=== PATIENT | female | born 1985 | race Caucasian/White ===

== ENCOUNTER → 2019-02-20 10:38 | Outpatient (CLI) | payer OTHER, SELFPAY ==
[2019-02-20 10:55] LABS: RBC Urine None Seen (0-5/HPF); WBC Urine None Seen (0-5/HPF)
[2019-02-20 12:04] LABS: Add Manual Diff / Slide Review NO; Basophils Absolute Auto 0 /uL (0-100); Eosinophils Absolute Auto 100 /uL (0-450); Eosinophils Percent Auto 1.2 % (2-4); Hematocrit 40.4 % (36-46); Hemoglobin 13.7 g/dL (12.0-16.0); Lymphocytes Absolute Auto 2000 /uL (1100-4500); Lymphocytes Percent Auto 44.1 % (25-40); Mean Corpuscular HGB Conc 33.8 % (30-36); Mean Corpuscular Hemoglobin 29.7 PG (26-34); Mean Corpuscular Volume 87.6 fL (80-100); Monocytes Absolute Auto 500 /uL (0-900); Monocytes Percent Auto 11.9 % (3-14); Neutrophils Absolute Auto 1900 /uL (1500-7000); Neutrophils Percent Auto 41.8 % (50-75); Platelet Count 379 X10^3/uL (150-400); Red Blood Cell Count 4.62 X10^6/uL (4.0-5.2); Red Cell Distribution Width 12.6 % (11.6-14.8); White Blood Cell Count 4.5 X10^3/uL (4.5-11.0)
[2019-02-20 12:47] LABS: Alanine Aminotransferase 16 IU/L (<35); Albumin 4.6 g/dL (3.5-5.0); Albumin Globulin Ratio 1.8 (1.0-2.8); Alkaline Phosphatase 53 U/L (38-126); Aspartate Aminotransferase 21 IU/L (14-36); BUN Creatinine Ratio 32.9 (6-22); Bilirubin Total 0.7 mg/dL (0.2-1.3); Blood Urea Nitrogen 23 mg/dL (7-17); Calcium 9.5 mg/dL (8.4-10.2); Carbon Dioxide 26 mmol/L (22-32); Chloride 103 mmol/L (98-107); Cholesterol 183 mg/dL (140-199); Estimated Glomerular Filt Rate > 60.0 mL/min (>60); Globulin 2.6 g/dL (1.7-4.1); Glucose 92 mg/dL (70-100); HDL Cholesterol 63 mg/dL (40-60); HEMOLYSIS < 15 (0-50); LDL Cholesterol Calculated 109 mg/dL (<100); Potassium 4.4 mmol/L (3.4-5.1); Sodium 138 mmol/L (137-145); Total Protein 7.2 g/dL (6.3-8.2); Triglycerides 54 mg/dL (35-150)
[2019-02-20 12:58] LABS: Appearance Urine UA CLEAR; Bilirubin Urine UA NEGATIVE (NEGATIVE); Color Urine UA YELLOW; Glucose Urine UA NEGATIVE (Negative); Ketones Urine UA NEGATIVE (NEGATIVE); Leukocyte Esterase Urine UA NEGATIVE (NEGATIVE); Nitrite Urine UA NEGATIVE (Negative); Occult Blood Urine UA NEGATIVE (Negative); Protein Urine UA NEGATIVE (Negative); Urobilinogen Urine UA 0.2 E.U./dL (0.2)
[2019-02-20 13:02] LABS: Free T4, Direct Thyroxine 0.99 ng/dL (0.78-2.19); Specific Gravity Urine UA 1.015 (1.000-1.035)
[2019-02-20 13:06] LABS: Squamous Epithelial Cell Urine 10-30 /HPF (0-5/HPF)
[2019-02-20 13:07] LABS: Bacteria Urine Moderate (10-30); Culture Indicated Urine Cult Not Indicated
[2019-02-20 13:16] LABS: Thyroid Stimulating Hormone 2.22 uIU/mL (0.47-4.68)
[2019-02-20 13:20] LABS: Ferritin 23.3 ng/mL (6.27-137)
[2019-02-23 14:11] LABS: Thyroid Peroxidase Antibodies < 1 IU/mL (< 9)
== END ==
PROVIDERS: Visit Provider Naturopath
DX: D64.9 Anemia, unspecified (principal); E04.9 Nontoxic goiter, unspecified; Z00.01 Encounter for general adult medical examination with abnormal findings
CPT/HCPCS: 36415; 80053; 80061; 81001; 82728; 83036; 84439; 84443; 84481; 85025; 86376

== ENCOUNTER → 2019-08-06 15:44 | Outpatient (CLI) | payer OTHER, SELFPAY ==
[2019-08-06 15:59] LABS: Bacteria Urine None Seen
[2019-08-06 16:32] LABS: Appearance Urine UA CLEAR; Bilirubin Urine UA NEGATIVE (NEGATIVE); Color Urine UA YELLOW; Glucose Urine UA NEGATIVE (Negative); Ketones Urine UA NEGATIVE (NEGATIVE); Leukocyte Esterase Urine UA NEGATIVE (NEGATIVE); Nitrite Urine UA NEGATIVE (Negative); Occult Blood Urine UA 2+ (Negative); Protein Urine UA NEGATIVE (Negative); Specific Gravity Urine UA <=1.005 (1.000-1.035); Urobilinogen Urine UA 0.2 E.U./dL (0.2)
[2019-08-06 16:38] LABS: Add Manual Diff / Slide Review NO; Basophils Absolute Auto 0 /uL (0-100); Basophils Percent Auto 0.5 % (0-2); Eosinophils Absolute Auto 100 /uL (0-450); Eosinophils Percent Auto 0.9 % (2-4); Hematocrit 36.8 % (36-46); Hemoglobin 12.6 g/dL (12.0-16.0); Lymphocytes Absolute Auto 1800 /uL (1100-4500); Lymphocytes Percent Auto 25.1 % (25-40); Mean Corpuscular HGB Conc 34.4 % (30-36); Mean Corpuscular Hemoglobin 30.2 PG (26-34); Mean Corpuscular Volume 88.1 fL (80-100); Monocytes Absolute Auto 500 /uL (0-900); Monocytes Percent Auto 7.4 % (3-14); Neutrophils Absolute Auto 4700 /uL (1500-7000); Neutrophils Percent Auto 66.1 % (50-75); Platelet Count 297 X10^3/uL (150-400); Red Blood Cell Count 4.17 X10^6/uL (4.0-5.2); Red Cell Distribution Width 12.8 % (11.6-14.8); White Blood Cell Count 7.1 X10^3/uL (4.5-11.0)
[2019-08-06 16:50] LABS: Culture Indicated Urine Cult Not Indicated; RBC Urine 1-5/HPF (0-5/HPF); Squamous Epithelial Cell Urine 0-1 /HPF (0-5/HPF); WBC Urine 0-1/HPF (0-5/HPF)
[2019-08-06 17:11] LABS: BUN Creatinine Ratio 20.3 (6-22); Blood Urea Nitrogen 16 mg/dL (7-17); Calcium 10.1 mg/dL (8.4-10.2); Carbon Dioxide 28 mmol/L (22-32); Chloride 101 mmol/L (98-107); Estimated Glomerular Filt Rate > 60.0 mL/min (>60); Glucose 96 mg/dL (70-100); HEMOLYSIS < 15 (0-50); Potassium 4.5 mmol/L (3.4-5.1); Sodium 136 mmol/L (137-145)
[2019-08-06 17:44] LABS: Ferritin 20 ng/mL (6-137)
[2019-08-07 10:20] LABS: SARS CoV19 IgG Negative (Negative)
== END ==
PROVIDERS: PCP Naturopath; Referring Provider Naturopath; Visit Provider Naturopath
DX: D64.9 Anemia, unspecified (principal); R82.998 Other abnormal findings in urine; R94.4 Abnormal results of kidney function studies
CPT/HCPCS: 36415; 80048; 81001; 82728; 85025; 86769

== ENCOUNTER 2019-09-20 18:25 | Emergency (ER) | payer OTHER, SELFPAY ==
[2019-09-20] VITALS (15 sets, daily range): BP systolic 120–147; BP diastolic 69–90; PULSE 84–119; RESP 17–18; TEMP 37.4; O2SAT 77–100
--- NOTE | 2019-09-20 18:57 | ED.ABDPAIN ---
HPI - Abdominal Pain General Chief Complaint: Abdominal Pain Stated Complaint: ABD PAIN WAS 6 WKS Time Seen by Provider: 09/20/19 18:57 Source: patient Mode of arrival: Ambulatory Limitations: no limitations History of Present Illness HPI narrative: 34-year-old female nonsmoker with noncontributory medical history is a at 8 weeks with signs and symptoms consistent with miscarriage over the past 2 weeks. She started having some cramping and bleeding which then became heavier and she passed likely tissue. 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 She has had increasing symptoms over the past few days and over the weekend had a fever as high as 102 with low abdominal pain and has also developed diarrhea. She denies runny nose, sore throat or cough. She is not dizzy nor weak or lightheaded. She is nauseated and has had a few episodes of vomiting. She last ate some soup just prior to coming to see us at about 6:00 p.m.. MD complaint: abdominal pain Onset (ago): week(s) Pain Consistency: constant Location: suprapubic Severity: moderate Quality: cramping Radiation: none Migration to: no migration Relieving factors: rest Exacerbating factors: movement Associated symptoms: nausea, diarrhea, fever and chills Related Data Previous Rx's Medication Instructions Recorded amoxicillin-pot clavulanate 1 tab PO BID #20 tab 09/20/19 [Augmentin] hydrocodone-acetaminophen 1 tab PO Q4-6H PRN #10 tab 09/20/19 ondansetron 4 mg PO TID-QID PRN #10 tab 09/20/19 Review of Systems Constitutional Constitutional: Reports chills, Denies fatigue, Reports fever(s), Denies frequent falls, Denies lethargy and Denies weakness Eyes Eyes: Denies change in vision, Denies eye discharge, Denies irritation and Denies loss of vision ENT Ears, Nose, Mouth, and Throat: Denies change in voice, Denies dizziness, Denies neck pain, Denies sore throat and Denies throat swelling Cardiovascular Cardiovascular: Denies chest pain, Denies irregular heart rhythm, Denies lightheadedness, Denies palpitations, Denies dyspnea, Denies dyspnea on exertion and Denies orthopnea Respiratory Respiratory: Denies cough, Denies dyspnea, Denies dyspnea on exertion and Denies wheezing Gastrointestinal Gastrointestinal: Reports abdominal pain, Denies change in bowel habits, Reports diarrhea, Reports nausea and Reports vomiting Genitourinary Comments: Vaginal bleeding with discharge Musculoskeletal Musculoskeletal: Denies neck pain and Denies numbness Integumentary/Breasts Skin/Breast: Denies pruritus, Denies erythema, Denies rash and Denies wounds Neurologic Neurologic: Denies behavioral changes, Denies confusion, Denies dizziness, Denies frequent falls, Denies loss of vision, Denies numbness and Denies weakness Psychiatric Psychiatric: Denies anxiety, Denies behavioral changes, Denies confusion, Denies depression, Denies homicidal ideation and Denies suicidal ideation Endocrine Endocrine: Denies fatigue, Denies flushing and Denies palpitations Hematologic/Lymphatic Hematologic/Lymphatic: Denies easy bruising Allergic/Immunologic Allergic/Immunologic: Denies urticaria, Denies throat swelling and Denies wheezing Patient History Social History Smoking Status: Never smoker Smoking Status: Never smoker alcohol intake frequency: a few times a month Substance Use Type: marijuana Exam Narrative Exam Narrative: GENERAL: [34] year old patient appears stated age. Well-nourished, well-developed patient, in moderate distress, obviously in pain HEAD: Atraumatic. Normocephalic. EYES: Pupils equal round and reactive. Extraocular motions intact. No scleral icterus. No injection or drainage. ENT: Nose without bleeding, purulent drainage. Throat without erythema, tonsillar hypertrophy or exudate. Airway patent. NECK: Trachea midline. Non tender CARDIOVASCULAR: Regular rate and rhythm without murmurs, gallops, or rubs. RESPIRATORY: Clear to auscultation. Breath sounds equal bilaterally. No wheezes, rales, or rhonchi. GASTROINTESTINAL: Abdomen soft, moderately tender in her lower abdomen, nondistended. EXTREMITIES: No edema or joint tenderness. BACK: Nontender without deformity or crepitance. No flank tenderness. NEURO: AOx3. SKIN: No rash or erythema of visible areas Initial Vital Signs Initial Vital Signs: Vital Signs Temperature 99.3 F 09/20/19 18:38 Pulse Rate 119 H 09/20/19 18:38 Respiratory Rate 18 09/20/19 18:38 Blood Pressure 147/90 H 09/20/19 18:38 Pulse Oximetry 100 09/20/19 18:38 Course Course Course Narrative: patient feeling much better after above stated therapies. Extensive discussion with patient upon completion of workup and questions answered to her apparent satisfaction. Return precautions given. Orders Ordered: ED Orders 09/20/19 19:39 Blood Culture Stat 09/20/19 21:18 CT abdomen pelvis w con Stat Discontinued Medications Hydrocodone Bitart/Acetaminophen (Vicodin 5/325 Prepack) 1 bottle MISC SEEINSTR ONE Stop: 09/20/19 22:49 Last Admin: 09/20/19 23:28 Dose: 1 bottle Documented by: [facility] Amoxicillin/Clavulanate Potassium (Augmentin 875-125 Mg) 1 tab PO NOW ONE Stop: 09/20/19 22:49 Last Admin: 09/20/19 23:28 Dose: 1 tab Documented by: [facility] Hydromorphone HCl (Dilaudid) 0.5 mg IV NOW ONE Stop: 09/20/19 21:05 Last Admin: 09/20/19 21:04 Dose: Not Given Documented by: [facility] Sodium Chloride (Normal Saline 0.9%) 1,000 mls @ 1,000 mls/hr IV BOLUS ONE Stop: 09/20/19 20:04 Last Infusion: 09/20/19 21:03 Dose: 0 mls/hr Documented by: Admin: 09/20/19 19:33 Dose: 1,000 mls/hr Documented by: [facility] Ondansetron HCl (Zofran Odt Prepack) 1 bottle MISC SEEINSTR ONE Stop: 09/20/19 22:49 Last Admin: 09/20/19 23:28 Dose: 1 bottle Documented by: [facility] Vital Signs Vital signs: Vital Signs - 8 hr 09/20/19 20:43 09/20/19 20:44 09/20/19 21:00 Pulse Rate 94 H 91 H Blood Pressure 131/87 132/88 Pulse Oximetry 77 L 99 100 09/20/19 21:30 09/20/19 22:00 09/20/19 22:30 Pulse Rate 84 100 H 96 H Blood Pressure 120/69 Pulse Oximetry 100 97 99 09/20/19 23:00 09/20/19 23:31 Pulse Rate 88 Blood Pressure Pulse Oximetry 99 100 MDM - Abdominal Pain Lab Data Result diagrams: 09/20/19 19:23 09/20/19 19:23 Labs: Lab Results 09/20/19 09/20/19 09/20/19 Range/Units 18:45 19:23 19:23 WBC 6.3 (4.5-11.0) X10^3/uL RBC 4.45 (4.0-5.2) X10^6/uL Hgb 13.0 (12.0-16.0) g/dL Hct 39.0 (36-46) % MCV 87.6 (80-100) fL MCH 29.1 (26-34) PG MCHC 33.3 (30-36) % RDW 12.8 (11.6-14.8) % Plt Count 227 (150-400) X10^3/uL Neut % (Auto) 69.2 (50-75) % Lymph % (Auto) 17.2 L (25-40) % [place] % (Auto) 13.1 (3-14) % Eos % (Auto) 0.3 L (2-4) % Baso % (Auto) 0.2 (0-2) % Neut # (Auto) 4300 (0735-4595) /uL Lymph # (Auto) 1100 (6915-6383) /uL [place] # (Auto) 800 (0-900) /uL Eos # (Auto) 0 (0-450) /uL Baso # (Auto) 0 (0-100) /uL Sodium 133 L (137-145) mmol/L Potassium 3.2 L (3.4-5.1) mmol/L Chloride 100 (98-107) mmol/L Carbon Dioxide 23 (22-32) mmol/L BUN 9 (7-17) mg/dL Creatinine 0.71 (0.52-1.04) mg/dL Estimated GFR > 60.0 (>60) mL/min BUN/Creatinine Ratio 12.7 (6-22) Glucose 96 (70-100) mg/dL Lactate (0.7-2.1) mmol/L Calcium 9.2 (8.4-10.2) mg/dL Total Bilirubin 0.6 (0.2-1.3) mg/dL AST 28 (14-36) IU/L ALT 18 (<35) IU/L Alkaline Phosphatase 53 (38-126) U/L Total Protein 7.1 (6.3-8.2) g/dL Albumin 4.1 (3.5-5.0) g/dL Globulin 3.0 (1.7-4.1) g/dL Albumin/Globulin Ratio 1.4 (1.0-2.8) Procalcitonin (<0.5) ng/mL HCG, Quant 14.3 mIU/mL Urine RBC 1-5/hpf (0-5/HPF) Urine WBC 1-5/hpf (0-5/HPF) Ur Squamous Epith Cells 5-10 /hpf H (0-5/HPF) Amorphous Sediment 1+ Urine Bacteria Few (2-10) H (None) Urine Mucus 2+ H (Negative) Ur Culture Indicated? Cult not indicated Blood Type 09/20/19 09/20/19 09/20/19 Range/Units 19:23 19:23 19:23 WBC (4.5-11.0) X10^3/uL RBC (4.0-5.2) X10^6/uL Hgb (12.0-16.0) g/dL Hct (36-46) % MCV (80-100) fL MCH (26-34) PG MCHC (30-36) % RDW (11.6-14.8) % Plt Count (150-400) X10^3/uL Neut % (Auto) (50-75) % Lymph % (Auto) (25-40) % [place] % (Auto) (3-14) % Eos % (Auto) (2-4) % Baso % (Auto) (0-2) % Neut # (Auto) (4632-2432) /uL Lymph # (Auto) (2821-4089) /uL [place] # (Auto) (0-900) /uL Eos # (Auto) (0-450) /uL Baso # (Auto) (0-100) /uL Sodium (137-145) mmol/L Potassium (3.4-5.1) mmol/L Chloride (98-107) mmol/L Carbon Dioxide (22-32) mmol/L BUN (7-17) mg/dL Creatinine (0.52-1.04) mg/dL Estimated GFR (>60) mL/min BUN/Creatinine Ratio (6-22) Glucose (70-100) mg/dL Lactate 0.7 (0.7-2.1) mmol/L Calcium (8.4-10.2) mg/dL Total Bilirubin (0.2-1.3) mg/dL AST (14-36) IU/L ALT (<35) IU/L Alkaline Phosphatase (38-126) U/L Total Protein (6.3-8.2) g/dL Albumin (3.5-5.0) g/dL Globulin (1.7-4.1) g/dL Albumin/Globulin Ratio (1.0-2.8) Procalcitonin 0.74 H (<0.5) ng/mL HCG, Quant mIU/mL Urine RBC (0-5/HPF) Urine WBC (0-5/HPF) Ur Squamous Epith Cells (0-5/HPF) Amorphous Sediment Urine Bacteria (None) Urine Mucus (Negative) Ur Culture Indicated? Blood Type A Positive Point of care testing: Point of Care Testing Test Results Positive Urine Dip Bedside Urine Glucose Negative Bedside Urine Bilirubin - Negative Bedside Urine Ketone ++ 40 Urine Specific [place] 1.020 Bedside Urine Occult Blood ++ Bedside Urine pH 6.0 Bedside Urine Protein + 30 Bedside Urine Urobilinogen +/- 1mg Bedside Urine Nitrite - Negative Bedside Urine Leukocytes - Negative Esterase Imaging Data US - abdomen: Radiologist's Impression: Chart Viewer Diagnostics DATE TYPE STATUS REF RANGE/AUTHOR Hx 09/20/19 21:18 Jerald Nayak 09/20/19 19:06 Jerald Nayak Christine E 34, F0 1985 [facility] ER, Main ED 62.596kg Abdominal Pain Search Chart No Data to Display No Data to Display ONSET 09/20/19 23:31 Samara Gardner 34 F 1985 [place] [address] Ultrasound Report Signed Patient: ClevelandCody albaSamara EMR#: [id number] : 1985Acct:[id number] Age/Sex: 34 / FDate of Service: 09/20/19 Loc: ED Accession Number: [id number] Procedure: US pelvic complete Ordering Provider: Scotty Harper D.O. PROCEDURE: US PELVIC COMPLETE INDICATIONS: SEVERE PELVIC PAIN / QUESTION RETAINED PRODUCTS TECHNIQUE: Real-time scanning was performed of the pelvic organs, with image documentation. Additional endovaginal scanning was necessary due to incomplete visualization of the adnexal and endometrial structures by transabdominal scanning. COMPARISON: None. FINDINGS: Transabdominal scanning: Limited scanning through the kidneys shows no hydronephrosis. Moderate pelvic free fluid. Mild perihepatic and perinephric ascites. Endovaginal scanning: Uterus: Uterus is normal in size at 7.8 x 3.7 x 5.5 cm. The endometrium measures 7-8 mm in combined thickness. No hypervascular suspicious foci to suggest retained products of conception. There is nonspecific fluid in the endocervical canal. Ovaries: Right ovary unremarkable measuring 4.0 x 1.4 x 2.6 cm. Left ovary is unremarkable except for physiologic cystic changes measuring 4.2 x 2.4 x 3.6 cm IMPRESSION: No specific sonographic evidence of retained products of conception. Dictated by: Jerald Nayak M.D. on 09/20/2019 at 21:11 Approved by: Jerald Nayak M.D. on 09/20/2019 at 21:13 CT scan - abdomen/pelvis: Radiologist's Impression: ClevelandSamara alba Samra 34 F 1985 [place] [address] CT Scan Report Signed Patient: Samara Gardner EMR#: [id number] : 1985Acct:[id number] Age/Sex: 34 / FDate of Service: 09/20/19 Loc: ED Accession Number: [id number] Procedure: CT abdomen pelvis w con Ordering Provider: Scotty Harper D.O. PROCEDURE: CT ABDOMEN PELVIS W CON INDICATIONS: severe abdominal pain, fever TECHNIQUE: After the administration of oral and intravenous contrast, 5 mm thick sections acquired from the diaphragms to the symphysis. 5 mm thick coronal and sagittal reformats were performed. For radiation dose reduction, the following was used: automated exposure control, adjustment of mA and/or kV according to patient size. COMPARISON: None. FINDINGS: Image quality: Excellent. ABDOMEN: Lung bases: Lung bases are clear. Heart size is normal. Presumed granulomatous sequela in the right lung measuring 2 mm. Solid organs: Liver is normal in size and enhancement. Gallbladder negative . Biliary system is non-dilated. Pancreas enhances normally. Spleen is normal in size and enhancement. No adrenal nodules. Kidneys are normal in size and enhancement, without hydronephrosis. Diffuse thickening of the colon wall. There is mild adjacent inflammatory fat stranding. No evidence of bowel obstruction. No free fluid or air. Appendix is not clearly identified however no suspicious pericecal inflammatory changes are seen. . Nodes and vessels: No retroperitoneal or mesenteric adenopathy. Aorta and inferior vena cava are normal in caliber. Miscellaneous: No ventral hernias. PELVIS: Genitourinary: Bladder wall thickness is normal. Miscellaneous: No inguinal hernias or adenopathy. Bones: No suspicious bony lesions. No vertebral body compression fractures. IMPRESSION: Diffuse colonic mural thickening suggestive of infectious/inflammatory pancolitis. Dictated by: Jerald Nayak M.D. on 09/20/2019 at 22:13 Approved by: Jerald Nayak M.D. on 09/20/2019 at 22:16 Discharge Plan Departure Patient Disposition: Home Clinical Impression: Colitis Abdominal pain Qualifiers: Abdominal location: generalized Qualified Code(s): R10.84 - Generalized abdominal pain Discharge Date/Time: 09/20/19 23:36 Instructions: DI for Colitis Activity Restrictions/Additional Instructions: 1. Drink plenty of fluids with frequent small sips. 2. For the next 24 hours a clear liquid diet is advised. After that please employ a brat diet which would include bananas, rice, apples, toast. 3. Please take medications as directed. Sent to [facility]'s 4. Please follow-up with your doctor in the next 1-2 days. Call the office for an appointment. 5. Please return to the emergency Department for any worsening or persistent symptoms, such as increasing pain or fever. Prescriptions: New amoxicillin-pot clavulanate [Augmentin] 875-125 mg tablet 1 tab PO BID Qty: 20 RF: 0 hydrocodone-acetaminophen 5-325 mg tablet 1 tab PO Q4-6H PRN (Reason: pain) Qty: 10 RF: 0 ondansetron 4 mg tablet,disintegrating 4 mg PO TID-QID PRN (Reason: nausea and vomiting) Qty: 10 RF: 0 Referrals: Iraida Bran ND [Primary Care Provider] -
--- NOTE | 2019-09-20 19:06 | DI.US.S_ITS ---
PROCEDURE: US PELVIC COMPLETE INDICATIONS: SEVERE PELVIC PAIN / QUESTION RETAINED PRODUCTS TECHNIQUE: Real-time scanning was performed of the pelvic organs, with image documentation. Additional endovaginal scanning was necessary due to incomplete visualization of the adnexal and endometrial structures by transabdominal scanning. COMPARISON: None. FINDINGS: Transabdominal scanning: Limited scanning through the kidneys shows no hydronephrosis. Moderate pelvic free fluid. Mild perihepatic and perinephric ascites. Endovaginal scanning: Uterus: Uterus is normal in size at 7.8 x 3.7 x 5.5 cm. The endometrium measures 7-8 mm in combined thickness. No hypervascular suspicious foci to suggest retained products of conception. There is nonspecific fluid in the endocervical canal. Ovaries: Right ovary unremarkable measuring 4.0 x 1.4 x 2.6 cm. Left ovary is unremarkable except for physiologic cystic changes measuring 4.2 x 2.4 x 3.6 cm IMPRESSION: No specific sonographic evidence of retained products of conception. Dictated by: Jerald Nayak M.D. on 09/20/2019 at 21:11 Approved by: Jerald Nayak M.D. on 09/20/2019 at 21:13
[2019-09-20 19:23] LABS: Amorphous Sediment Urine 1+; RBC Urine 1-5/HPF (0-5/HPF); Squamous Epithelial Cell Urine 5-10 /HPF (0-5/HPF)
[2019-09-20 19:24] LABS: Bacteria Urine Few (2-10); Culture Indicated Urine Cult Not Indicated; Mucus Urine 2+ (Negative); WBC Urine 1-5/HPF (0-5/HPF)
[2019-09-20 19:31] LABS: Add Manual Diff / Slide Review NO; Basophils Absolute Auto 0 /uL (0-100); Basophils Percent Auto 0.2 % (0-2); Eosinophils Absolute Auto 0 /uL (0-450); Eosinophils Percent Auto 0.3 % (2-4); Lymphocytes Absolute Auto 1100 /uL (1100-4500); Lymphocytes Percent Auto 17.2 % (25-40); Mean Corpuscular HGB Conc 33.3 % (30-36); Mean Corpuscular Hemoglobin 29.1 PG (26-34); Mean Corpuscular Volume 87.6 fL (80-100); Monocytes Absolute Auto 800 /uL (0-900); Monocytes Percent Auto 13.1 % (3-14); Neutrophils Absolute Auto 4300 /uL (1500-7000); Neutrophils Percent Auto 69.2 % (50-75); Platelet Count 227 X10^3/uL (150-400); Red Blood Cell Count 4.45 X10^6/uL (4.0-5.2); Red Cell Distribution Width 12.8 % (11.6-14.8); White Blood Cell Count 6.3 X10^3/uL (4.5-11.0)
[2019-09-20] MEDS: SODIUM CHLORIDE 0.9% 1,000 ML 1000 ML IV (19:33)
[2019-09-20 19:44] LABS: HEMOLYSIS < 15 (0-50)
[2019-09-20 19:49] LABS: Lactate (Lactic Acid) 0.7 mmol/L (0.7-2.1)
[2019-09-20 19:50] LABS: Alanine Aminotransferase 18 IU/L (<35); Albumin 4.1 g/dL (3.5-5.0); Albumin Globulin Ratio 1.4 (1.0-2.8); Alkaline Phosphatase 53 U/L (38-126); Aspartate Aminotransferase 28 IU/L (14-36); BUN Creatinine Ratio 12.7 (6-22); Bilirubin Total 0.6 mg/dL (0.2-1.3); Blood Urea Nitrogen 9 mg/dL (7-17); Calcium 9.2 mg/dL (8.4-10.2); Carbon Dioxide 23 mmol/L (22-32); Chloride 100 mmol/L (98-107); Estimated Glomerular Filt Rate > 60.0 mL/min (>60); Glucose 96 mg/dL (70-100); Potassium 3.2 mmol/L (3.4-5.1); Sodium 133 mmol/L (137-145); Total Protein 7.1 g/dL (6.3-8.2)
[2019-09-20 20:11] LABS: Procalcitonin 0.74 ng/mL (<0.5)
[2019-09-20 20:16] LABS: HCG Quantitative /Beta subunit 14.3 mIU/mL
[2019-09-20] MEDS: HYDROMORPHONE 0.5 MG INJ (21:05)
--- NOTE | 2019-09-20 21:18 | DI.CT.S_ITS ---
PROCEDURE: CT ABDOMEN PELVIS W CON INDICATIONS: severe abdominal pain, fever TECHNIQUE: After the administration of oral and intravenous contrast, 5 mm thick sections acquired from the diaphragms to the symphysis. 5 mm thick coronal and sagittal reformats were performed. For radiation dose reduction, the following was used: automated exposure control, adjustment of mA and/or kV according to patient size. COMPARISON: None. FINDINGS: Image quality: Excellent. ABDOMEN: Lung bases: Lung bases are clear. Heart size is normal. Presumed granulomatous sequela in the right lung measuring 2 mm. Solid organs: Liver is normal in size and enhancement. Gallbladder negative . Biliary system is non-dilated. Pancreas enhances normally. Spleen is normal in size and enhancement. No adrenal nodules. Kidneys are normal in size and enhancement, without hydronephrosis. Diffuse thickening of the colon wall. There is mild adjacent inflammatory fat stranding. No evidence of bowel obstruction. No free fluid or air. Appendix is not clearly identified however no suspicious pericecal inflammatory changes are seen. . Nodes and vessels: No retroperitoneal or mesenteric adenopathy. Aorta and inferior vena cava are normal in caliber. Miscellaneous: No ventral hernias. PELVIS: Genitourinary: Bladder wall thickness is normal. Miscellaneous: No inguinal hernias or adenopathy. Bones: No suspicious bony lesions. No vertebral body compression fractures. IMPRESSION: Diffuse colonic mural thickening suggestive of infectious/inflammatory pancolitis. Dictated by: Jerald Nayak M.D. on 09/20/2019 at 22:13 Approved by: Jerald Nayak M.D. on 09/20/2019 at 22:16
[2019-09-20] MEDS: ONDANSETRON 4 MG ODT PREPACK 1 BOTTLE MISC (23:28)
[2019-09-20] MEDS: AMOXICILLIN/CLAV 875/125 MG 1 TAB PO (23:28)
[2019-09-20] MEDS: HYDROCODONE/ACET 5/325 PREPACK 1 BOTTLE MISC (23:28)
== END 2019-09-20 23:36 | disposition home or self-care (01) ==
PROVIDERS: Emergency Provider Emergency Medicine; PCP Naturopath
DX: K52.9 Noninfective gastroenteritis and colitis, unspecified (principal); R10.84 Generalized abdominal pain; R50.9 Fever, unspecified; R11.2 Nausea with vomiting, unspecified
CPT/HCPCS: 36415; 74177; 76830; 76856; 80053; 81003; 81015; 81025; 83605; 84145; 84702; 85025; 86900; 86901; 87040; 96361; 96374; 99285; J1170

== ENCOUNTER → 2020-02-22 07:35 | Outpatient (CLI) | payer OTHER, SELFPAY ==
--- NOTE | 2020-02-22 | DI.US.S_ITS ---
PROCEDURE: US PELVIC COMPLETE INDICATIONS: SECONDARY OLIGOMENORRHEA TECHNIQUE: Real-time scanning was performed of the pelvic organs, with image documentation. Additional endovaginal scanning was necessary due to incomplete visualization of the adnexal and endometrial structures by transabdominal scanning. COMPARISON: , CT, CT ABDOMEN PELVIS W CON, 09/20/2019, 21:40. , US, US PELVIC COMPLETE, 09/20/2019, 20:14. FINDINGS: Transabdominal scanning: Limited scanning through the kidneys shows trace right renal pelviectasis. No pathologic free abdominal or pelvic fluid. Endovaginal scanning: Uterus: Uterus is normal in size at 7.4 x 5.5 x 4.6 cm. The endometrium measures 11.9 mm in combined thickness. Note is made of nabothian cysts in cervix. Ovaries: Right ovary measures 4.1 x 3.4 x 1.8 cm. Left ovary measures 3.6 x 2.8 x 1.8 cm. Ovaries demonstrate normal echotexture. IMPRESSION: 1. A cause for oligomenorrhea is not identified on ultrasound. 2. Nabothian cysts in the cervix. 3. Trace right renal pelviectasis. Dictated by: Paz Lane M.D. on 02/22/2020 at 9:30 Approved by: Paz Lane M.D. on 02/22/2020 at 9:40
== END ==
PROVIDERS: PCP Naturopath; Referring Provider Nurse Practitioner Obstetrics & Gynecology; Visit Provider Nurse Practitioner Obstetrics & Gynecology
DX: N91.4 Secondary oligomenorrhea (principal); N88.8 Other specified noninflammatory disorders of cervix uteri
CPT/HCPCS: 76830; 76856

== ENCOUNTER → 2020-03-03 16:34 | Outpatient (CLI) | payer OTHER, SELFPAY ==
[2020-03-03 17:27] LABS: Prolactin 12.1 ng/mL (3.0-18.6)
[2020-03-03 17:35] LABS: Follicle Stimulating Hormone 6.54 mIU/mL; Luteinizing Hormone 6.45 mIU/mL
[2020-03-03 17:50] LABS: Estradiol, Total 56.7 pg/mL
== END ==
PROVIDERS: PCP Naturopath; Referring Provider Nurse Practitioner Obstetrics & Gynecology; Visit Provider Nurse Practitioner Obstetrics & Gynecology
DX: N91.4 Secondary oligomenorrhea (principal)
CPT/HCPCS: 36415; 82670; 83001; 83002; 84146; 84443

== ENCOUNTER → 2020-07-19 12:04 | Outpatient (CLI) | payer OTHER, SELFPAY ==
--- NOTE | 2020-07-19 | DI.US.S_ITS ---
PROCEDURE: US OB >= 14 WEEKS FETUS INDICATIONS: ANATOMY OUTSIDE/PRIOR DATING DATA: Last menstrual period (LMP): 02/29/2020. LMP-based estimated date of delivery (SHANKAR): 12/05/2020. First dating scan (date and location): 07/19/2020. Estimated date of delivery (SHANKAR) from first dating scan: 12/13/2020. TECHNIQUE: Real-time scanning was performed of the fetus, with image documentation and biometric measurements. Endovaginal scanning: Not performed COMPARISON: None. FINDINGS: General: A single living intrauterine gestation is present. Presentation: Vertex. Placenta: Placental position is posterior , without previa. Amniotic fluid index: 10.9 cm, normal range is 5-24 cm. heart rate: 141 beats per minute. Maternal cervical canal: 5.3 cm long. Normal lower limit is 2.5 cm. biometrics: Biparietal diameter: 4.2 cm, 18 weeks 6 days. 7th percentile. Head circumference: 16.2 cm, the 19 weeks 0 days. 5th percentile. Abdominal circumference: 14.1 cm, 19 weeks 3 days. 23rd percentile. Femur length: 2.8 cm, 18 weeks 4 days. 4th percentile. Estimated gestational age from initial scan: not applicable. 20 weeks 1 day by LMP. Composite gestational age from present scan: 19 weeks 0 days Estimated weight and percentile: 296 g, 5th percentile. Measurement variability for biometric dating: +/- 7 days from 14 weeks to 15 weeks 6 days gestation, +/- 10 days from 16 weeks to 21 weeks 6 days gestation, +/- 2 weeks from 22 weeks to 27 weeks 6 days gestation, +/- 3 weeks for 28 weeks gestation or later. weight reference: 4500 g or EFW >90/95% is considered macrosomia or large for gestational age. EFW <10% is small for gestational age. EFW 5% or less is considered intra-uterine growth restriction. Anatomic survey: Neuro: Ventricles are non-dilated at less than 10 mm. Cisterna magna is normal at 3-11 mm. Cerebellum is normal in size and morphology. Nuchal skin fold: Normal at less than 6 mm between 14-21 weeks gestational age. Face: Nose and lips, facial profile are normal. Spine: No evidence for spina bifida. Heart: 4-chambered heart is present. LVOT is normal in appearance. The RVOT is not well seen. Diaphragm: Diaphragm is intact. Stomach: Left-sided stomach is present. Kidneys: No hydronephrosis. Normal is less than 5 mm in 2nd trimester, less than 7 mm in 3rd trimester. Cord: 3-vessel cord has orthotopic insertion. Bladder: Normal in size. Extremities: All 4 extremities identified. IMPRESSION: 1. [place] living intrauterine at 19 weeks 0 days based on today's ultrasound. Estimated weight 296 g. 5th percentile. Concern for IUGR. 2. Normal placenta and amniotic fluid. 3. RVOT is not well seen. Otherwise normal anatomic survey. Recommend follow-up OB ultrasound. Dictated by: Tristen Blake M.D. on 07/19/2020 at 15:54 Approved by: Tristen Blake M.D. on 07/19/2020 at 16:07
== END ==
PROVIDERS: PCP Naturopath; Referring Provider Nurse Practitioner Obstetrics & Gynecology; Visit Provider Nurse Practitioner Obstetrics & Gynecology
DX: Z36.89 Encounter for other specified antenatal screening (principal); Z3A.19 19 weeks gestation of pregnancy
CPT/HCPCS: 76811

== ENCOUNTER 2022-01-20 22:11 | Day surgery (SDC) | payer BC, SELFPAY ==
[2022-01-20 22:32] VITALS: BP 157/111; PULSE 72; RESP 20; TEMP 36.9; O2SAT 98; BMI 25.8
--- NOTE | 2022-01-20 22:37 | DI.US.S_ITS ---
P wall ROCEDURE: US OB <= 14 WEEKS FETUS INDICATIONS: Bleeding TECHNIQUE: Real-time scanning was performed of the maternal pelvic organs, with image documentation. Endovaginal scanning was also performed to better visualize the fetus and maternal ovaries. COMPARISON: [facility], US, US OB < 14 WEEKS + OB TRANSVAG, 01/17/2022, 14:35. FINDINGS: Uterus: The uterus is anteverted and measures 11.6 x 6.1 x 7.5 cm. The endometrium is heterogeneously thickened, measuring up to 2.5 cm. There is vascularity within the endometrium in the fundus on color Doppler interrogation. No intrauterine gestational sac identified. Ovaries: The ovaries were not discretely visualized. No free fluid in the pelvis. IMPRESSION: 1. Heterogeneous thickening of the endometrium with internal vascularity in the fundus likely representing retained products of conception. We strive to produce accurate, complete, and clear reports of imaging services. To assist us in improving patient care, this report was composed using standard report templates and voice recognition software. Therefore, it may contain abnormal punctuation, insertions and/or omissions. Occasional wrong-word or sound-alike substitutions may occur. Though we review the report and make efforts to correct it, we do recommend that the report be read carefully in proper context to recognize any text inaccuracies. Dictated by: Mitesh Giron M.D. on 01/21/2022 at 0:03 Approved by: Mitesh Giron M.D. on 01/21/2022 at 0:06
[2022-01-21] VITALS (7 sets, daily range): BP systolic 110–125; BP diastolic 76–85; PULSE 66–83; RESP 10–17; TEMP 36.4–37; O2SAT 97–100
--- NOTE | 2022-01-21 | PATH_ITS ---
[facility] Accession Number: [id number] . 01 Material submitted: . product of conception - PRODUCTS OF CONCEPTION . 01 Diagnosis: Uterine Contents: Immature chorionic villi with hydropic degeneration, gestational endometrium, and decidua. Negative for gestational trophoblastic disease. MRV 01/23/2022 1817 Local . 01 Electronically signed: . Louann Sanchez MD, Pathologist NPI- [id number] . 01 Gross description: . The specimen is received in formalin labeled with the patient's name, , and products of conception, and consists of multiple tucker spongy to membranous soft tissue fragments admixed with hemorrhagic material aggregating to 8.9 x 7.3 x 3.4 cm. No tissue is identified. Detonator Assembler sections are submitted in cassettes A1-A2. ([id number]) /MRV 01/22/2022 1847 Local . 01 Pathologist provided ICD-10: O03.9 . 01 CPT . 805018 Specimen Comment: A courtesy copy of this report has been sent to [facility] Pathology Performed at: 01 [facility] Cyt[facility] [address] [place] [address], [place], [place] [id number] MD Mitesh Torres MD Phone: [phone]
[2022-01-21 01:52] LABS: Add Manual Diff / Slide Review NO; Basophils Absolute Auto 100 /uL (0-100); Basophils Percent Auto 1.2 % (0-2); Eosinophils Absolute Auto 700 /uL (0-450); Eosinophils Percent Auto 8.8 % (2-4); Hematocrit 31.1 % (36-46); Hemoglobin 10.6 g/dL (12.0-16.0); Lymphocytes Absolute Auto 1300 /uL (1100-4500); Lymphocytes Percent Auto 16.4 % (25-40); Mean Corpuscular HGB Conc 33.9 % (30-36); Mean Corpuscular Hemoglobin 30.3 PG (26-34); Mean Corpuscular Volume 89.2 fL (80-100); Monocytes Absolute Auto 400 /uL (0-900); Monocytes Percent Auto 5.4 % (3-14); Neutrophils Absolute Auto 5500 /uL (1500-7000); Neutrophils Percent Auto 68.2 % (50-75); Platelet Count 238 X10^3/uL (150-400); Red Blood Cell Count 3.49 X10^6/uL (4.0-5.2)
--- NOTE | 2022-01-21 01:55 | ED.PREGNANCY ---
HPI - General Chief complaint: Vaginal Bleeding Stated complaint: Miscarriage, Bleeding Time Seen by Provider: 01/20/22 22:55 Source: patient Mode of arrival: Wheelchair History of Present Illness HPI Narrative: Patient is a 36-year-old female is AB1 presents today with vaginal bleeding. She says she was about 12-,1/2 weeks started having cramping and abdominal pain. She actually says that she passed tissue and products of conception at home. Continue to have significant bleeding. She slightly dizzy when she stands up. Lying down his bleeding is controlled however every time she stands up she has a gush of blood passing golf size clots Status was in October Related Data Home Medications Medication Instructions Recorded Confirmed albuterol sulfate 90 mcg/actuation inhalation 01/21/22 aerosol inhaler lamotrigine 100 mg tablet mg 01/21/22 propranolol 10 mg tablet mg 01/21/22 Allergies Allergy/AdvReac Type Severity Reaction Status Date / Time No Known Drug Allergies Allergy Verified 01/21/22 02:21 Review of Systems Review of Systems Narrative: GENERAL: Denies chills, fatigue, malaise, fever, sweats, travel HEENT: Denies sinus pain, ear pain, sore throat, difficulty swallowing, neck pain RESPIRATORY: Denies dyspnea, cough, wheezing, hemoptysis, sputum. CARDIOVASCULAR: Denies chest pain, palpitations, orthopnea, edema GASTROINTESTINAL: Denies nausea, vomiting, abdominal pain, diarrhea, constipation, melena. : Denies dysuria, frequency, incontinence, hematuria, urinary retention, flank pain. CHRONIC MANAGER: See HPI MUSCULOSKELETAL: Denies weakness, joint pain, or bony pain SKIN: No rash, no erythema, no pruritus NEUROLOGIC: Denies weakness, dizziness, headache, numbness, change in speech, confusion PSYCHIATRIC: No concerning psychosocial issues. 12 point review of systems is negative except for those stated above and HPI Exam Initial Vital Signs Initial Vital Signs: Vital Signs Temperature 98.4 F 01/20/22 22:32 Pulse Rate 72 01/20/22 22:32 Respiratory Rate 20 01/20/22 22:32 Blood Pressure 157/111 H 01/20/22 22:32 Pulse Oximetry 98 01/20/22 22:32 Oxygen Delivery Method 01/20/22 22:32 GENERAL: Alert 36-year-old female and in no acute distress. HEENT: Head atraumatic,EOMI, pupils reactive, face symmetric, moist mucous membranes CARDIOVASCULAR: Regular rate and rhythm without murmurs, rubs or gallops. RESPIRATORY: Breath sounds equal bilaterally, no wheezes rales or rhonchi. ABDOMEN: Soft, nontender. Normoactive bowel sounds all 4 quadrants. No guarding or rebound. PELVIC: Normal external exam blood in the vagina cervical os open large blood clot present. EXTREMITIES: Normal range of motion, no clubbing or edema. Neurovascularly intact NEUROLOGICAL: Alert and oriented x4. SKIN: Warm, dry, no laceration, no petechiae, no rashes or lesions. Course Orders Ordered: ED Orders 01/20/22 22:37 US pelvic complete Stat 01/20/22 22:55 CBC Auto Diff [Complete Blood Count AUTO DIFF] Stat CMP [Comprehensive Metabolic Panel] Stat HCG Quantitative /Beta subunit Stat 01/21/22 03:33 Type and Screen Stat 01/21/22 03:43 COVID19 -Nasal RAPID/Pre-Proc Stat Acetaminophen (Acetaminophen 325 Mg Tablet) 650 mg PO PACUNOW PRN PRN Reason: Pain, Mild (1-3) Fentanyl (Fentanyl 100 Mcg/2 Ml Inj) 0 mcg IV Q5M PRN PRN Reason: Pain, Moderate (4-6) Lactated Ringer's (Lactated Ringers) 1,000 mls @ 125 mls/hr IV CONT [facility] Last Infusion: 01/21/22 06:00 Dose: 0 mls/hr Documented By: Admin: 01/21/22 04:24 Dose: 125 mls/hr Documented By: ISA Ketorolac Tromethamine (Ketorolac 30 Mg/Ml Vial) 30 mg IV NOW PRN PRN Reason: Pain, Mild (1-3) Last Admin: 01/21/22 06:08 Dose: 30 mg Documented By: AK Ondansetron HCl (Ondansetron 4 Mg/2 Ml Inj) 4 mg IV NOW PRN PRN Reason: Nausea And Vomiting Discontinued Medications Lactated Ringer's (Lactated Ringers) 1,000 mls @ 125 mls/hr IV CONT [facility] Last Admin: 01/21/22 04:24 Dose: Not Given Documented By: RL Doxycycline Hyclate 100 mg/ (Sodium Chloride) 100 mls @ 100 mls/hr IV NOW ONE Stop: 01/21/22 04:26 Last Infusion: 01/21/22 05:22 Dose: 0 mls/hr Documented By: Admin: 01/21/22 05:12 Dose: 100 mls/hr Documented By: YOLANDE Misoprostol (Misoprostol 200 Mcg Tablet) 800 mcg VAG NOW ONE Stop: 01/21/22 05:58 Last Admin: 01/21/22 05:58 Dose: 600 mcg Documented By: BOYD Morphine Sulfate (Morphine 4 Mg/Ml Inj) 4 mg IV NOW ONE Stop: 01/21/22 02:04 Last Admin: 01/21/22 02:21 Dose: 4 mg Documented By: NORMAN Silver Nitrate/Potassium Nitrate (Silver Nitrate Stick) 2 each TOP NOW ONE Stop: 01/21/22 06:00 Last Admin: 01/21/22 06:00 Dose: 2 each Documented By: BOYD Vital Signs Vital signs: Vital Signs - 8 hr 01/20/22 22:32 01/21/22 05:50 Temperature 98.4 F 98.2 F Pulse Rate 72 83 Respiratory Rate 20 15 Blood Pressure 157/111 H 117/80 Pulse Oximetry 98 98 Oxygen Delivery Method Room Air Room Air MDM - OB/Uterine Contractions Lab Data Result diagrams: 01/21/22 01:20 01/21/22 01:20 Labs: Lab Results 01/21/22 01/21/22 01/21/22 Range/Units 01:20 01:20 03:33 WBC 8.0 (4.5-11.0) X10^3/uL RBC 3.49 L (4.0-5.2) X10^6/uL Hgb 10.6 L (12.0-16.0) g/dL Hct 31.1 L (36-46) % MCV 89.2 (80-100) fL MCH 30.3 (26-34) PG MCHC 33.9 (30-36) % RDW 13.0 (11.6-14.8) % Plt Count 238 (150-400) X10^3/uL Neut % (Auto) 68.2 (50-75) % Lymph % (Auto) 16.4 L (25-40) % [place] % (Auto) 5.4 (3-14) % Eos % (Auto) 8.8 H (2-4) % Baso % (Auto) 1.2 (0-2) % Neut # (Auto) 5500 (2725-9410) /uL Lymph # (Auto) 1300 (7577-1963) /uL [place] # (Auto) 400 (0-900) /uL Eos # (Auto) 700 H (0-450) /uL Baso # (Auto) 100 (0-100) /uL Sodium 135 L (137-145) mmol/L Potassium 3.6 (3.4-5.1) mmol/L Chloride 103 (98-107) mmol/L Carbon Dioxide 25 (22-32) mmol/L BUN 10 (7-17) mg/dL Creatinine 0.50 L (0.52-1.04) mg/dL Estimated GFR > 60 (>60) mL/min BUN/Creatinine Ratio 20.0 (6-22) Glucose 99 (70-100) mg/dL Calcium 8.9 (8.4-10.2) mg/dL Total Bilirubin 0.4 (0.2-1.3) mg/dL AST 22 (14-36) IU/L ALT 17 (<35) IU/L Alkaline Phosphatase 48 (38-126) U/L Total Protein 6.5 (6.3-8.2) g/dL Albumin 3.9 (3.5-5.0) g/dL Globulin 2.6 (1.7-4.1) g/dL Albumin/Globulin Ratio 1.5 (1.0-2.8) HCG, Quant 6395.7 mIU/mL SARS-CoV-2 (PCR) (Negative) Blood Type A Positive Antibody Screen Negative 01/21/22 Range/Units 03:43 WBC (4.5-11.0) X10^3/uL RBC (4.0-5.2) X10^6/uL Hgb (12.0-16.0) g/dL Hct (36-46) % MCV (80-100) fL MCH (26-34) PG MCHC (30-36) % RDW (11.6-14.8) % Plt Count (150-400) X10^3/uL Neut % (Auto) (50-75) % Lymph % (Auto) (25-40) % [place] % (Auto) (3-14) % Eos % (Auto) (2-4) % Baso % (Auto) (0-2) % Neut # (Auto) (3137-5242) /uL Lymph # (Auto) (2563-5993) /uL [place] # (Auto) (0-900) /uL Eos # (Auto) (0-450) /uL Baso # (Auto) (0-100) /uL Sodium (137-145) mmol/L Potassium (3.4-5.1) mmol/L Chloride (98-107) mmol/L Carbon Dioxide (22-32) mmol/L BUN (7-17) mg/dL Creatinine (0.52-1.04) mg/dL Estimated GFR (>60) mL/min BUN/Creatinine Ratio (6-22) Glucose (70-100) mg/dL Calcium (8.4-10.2) mg/dL Total Bilirubin (0.2-1.3) mg/dL AST (14-36) IU/L ALT (<35) IU/L Alkaline Phosphatase (38-126) U/L Total Protein (6.3-8.2) g/dL Albumin (3.5-5.0) g/dL Globulin (1.7-4.1) g/dL Albumin/Globulin Ratio (1.0-2.8) HCG, Quant mIU/mL SARS-CoV-2 (PCR) Negative (Negative) Blood Type Antibody Screen Imaging Data US - OB: Radiologist's Impression: Signed Patient: Samara Gardner MR#: [id number] : 1985 Acct:[id number] Age/Sex: 36 / F Date of Service: 01/20/22 Loc: ED Accession Number: [id number] ?? Procedure: US pelvic complete Ordering Provider: Orly Echeverria D.O. ROCEDURE:? US OB <= 14 WEEKS FETUS ? INDICATIONS:? Bleeding ? ? TECHNIQUE:? Real-time scanning was performed of the maternal pelvic organs, with image documentation. ?Endovaginal scanning was also performed to better visualize the fetus and maternal ovaries.? ? COMPARISON:? [facility], US, US OB < 14 WEEKS + OB TRANSVAG, 01/17/2022, 14:35. ? FINDINGS:? ? Uterus:? The uterus is anteverted and measures 11.6 x 6.1 x 7.5 cm.? The endometrium is heterogeneously thickened, measuring up to 2.5 cm.? There is vascularity within the endometrium in the fundus on color Doppler interrogation.? No intrauterine gestational sac identified.? ? Ovaries:? The ovaries were not discretely visualized. ? No free fluid in the pelvis. ? IMPRESSION:? ? 1. Heterogeneous thickening of the endometrium with internal vascularity in the fundus likely representing retained products of conception.? ? We strive to produce accurate, complete, and clear reports of imaging services. To assist us in improving patient care, this report was composed using standard report templates and voice recognition software. Therefore, it may contain abnormal punctuation, insertions and/or omissions. Occasional wrong-word or sound-alike substitutions may occur. Though we review the report and make efforts to correct it, we do recommend that the report be read carefully in proper context to recognize any text inaccuracies. ? Dictated by: Mitesh Giron M.D. on 01/21/2022 at 0:03 ? ? Approved by: Mitesh Giron M.D. on 01/21/2022 at 0:06 ? MDM Narrative Medical decision making narrative: Patient's 1st 12 weeks by menstrual. . Ultrasound confirmed products. , updated patient's symptoms test results comes to the ED to seen evaluated patient and will take her to the OR for D and C Patient tolerate morphine well for pain. Discharge Plan Departure Patient Disposition: Home
[2022-01-21 02:13] LABS: Alanine Aminotransferase 17 IU/L (<35); Albumin 3.9 g/dL (3.5-5.0); Albumin Globulin Ratio 1.5 (1.0-2.8); Alkaline Phosphatase 48 U/L (38-126); Aspartate Aminotransferase 22 IU/L (14-36); Bilirubin Total 0.4 mg/dL (0.2-1.3); Blood Urea Nitrogen 10 mg/dL (7-17); Calcium 8.9 mg/dL (8.4-10.2); Carbon Dioxide 25 mmol/L (22-32); Chloride 103 mmol/L (98-107); Estimated Glomerular Filt Rate > 60 mL/min (>60); Globulin 2.6 g/dL (1.7-4.1); Glucose 99 mg/dL (70-100); HEMOLYSIS < 15 (0-50); Potassium 3.6 mmol/L (3.4-5.1); Sodium 135 mmol/L (137-145); Total Protein 6.5 g/dL (6.3-8.2)
[2022-01-21] MEDS: MORPHINE 4 MG/ML INJ IV (02:21)
[2022-01-21 02:29] LABS: HCG Quantitative /Beta subunit 6395.7 mIU/mL
[2022-01-21 04:09] LABS: COVID19 -Nasal RAPID Negative (Negative)
--- NOTE | 2022-01-21 04:13 | PM.GYNHP.1 ---
History of Present Illness History of Present Illness Reason for admission: vaginal bleeding and incomplete Narrative: Samara Gardner is a 36 year old female currently , 12 weeks 6 days by LMP who was diagnosed 3 days ago with a 1st trimester miscarriage. She reports having an ultrasound on 01/18/2022 in [facility] which showed a nonviable intrauterine , miscarriage. She was going to have care with Fariba Taveras CNM. Pt says her pharmacist in charge called her with the US report and relayed the missed Ab. Patient reports that she was told baby measured smaller than 12 weeks, measuring 9 weeks. She reports she started with some light bleeding and cramping 3 days ago. However cramping has become severe over past few hours and bleeding very heavy when she stands, passing large clots. With the cramping becoming severe and not using and the heavy bleeding, she presented to the ED. She reports some lightheadedness when she stood here in the ED, but reports she had also received some morphine. She has not stood since. No lightheadedness while sitting. OB history: History of x1, vaginal delivery x1, spontaneous miscarriage x2 [facility] Medical History (Updated 01/21/22 @ 04:41 by Mariluz Reyes MD) Anxiety Seasonal asthma Surgical History (Updated 01/21/22 @ 04:41 by Mariluz Reyes MD) H/O section Social History Smoking Status: Never smoker Meds Home Medications and Allergies Home Medications Medication Instructions Recorded Confirmed Type albuterol sulfate 90 mcg/actuation inhalation 01/21/22 History aerosol inhaler lamotrigine 100 mg tablet mg 01/21/22 History propranolol 10 mg tablet mg 01/21/22 History Allergies Allergy/AdvReac Type Severity Reaction Status Date / Time No Known Drug Allergies Allergy Verified 01/21/22 02:21 Exam Vital Signs (past 8 hours): - 01/20/22 22:32 Temperature 98.4 F Pulse Rate 72 Respiratory Rate 20 Blood Pressure 157/111 H Pulse Oximetry 98 Oxygen Delivery Method Room Air Oxygen Delivery Method Room Air Narrative Exam Narrative: General: Well-appearing, currently comfortable appearing female. No acute distress Heart: Regular rate rhythm, negative for audible murmur Lungs: Clear to auscultation bilaterally Extremities: Negative for edema Objective Imaging Pelvic US: Radiologist's impression: Patient: Samara Gardner, MR#: [id number] : 1985 Acct:[id number] Age/Sex: 36 / F Date of Service: 01/20/22 Loc: ED Accession Number: [id number] ?? Procedure: US pelvic complete Ordering Provider: Orly Echeverria D.O. ROCEDURE:? US OB <= 14 WEEKS FETUS ? INDICATIONS:? Bleeding ? ? TECHNIQUE:? Real-time scanning was performed of the maternal pelvic organs, with image documentation. ?Endovaginal scanning was also performed to better visualize the fetus and maternal ovaries.? ? COMPARISON:? [facility], , OB < 14 WEEKS + OB TRANSVAG, 01/17/2022, 14:35. ? FINDINGS:? ? Uterus:? The uterus is anteverted and measures 11.6 x 6.1 x 7.5 cm.? The endometrium is heterogeneously thickened, measuring up to 2.5 cm.? There is vascularity within the endometrium in the fundus on color Doppler interrogation.? No intrauterine gestational sac identified.? ? Ovaries:? The ovaries were not discretely visualized. ? No free fluid in the pelvis. ? IMPRESSION:? ? 1. Heterogeneous thickening of the endometrium with internal vascularity in the fundus likely representing retained products of conception.? ? We strive to produce accurate, complete, and clear reports of imaging services. To assist us in improving patient care, this report was composed using standard report templates and voice recognition software. Therefore, it may contain abnormal punctuation, insertions and/or omissions. Occasional wrong-word or sound-alike substitutions may occur. Though we review the report and make efforts to correct it, we do recommend that the report be read carefully in proper context to recognize any text inaccuracies. ? Dictated by: Mitesh Giron M.D. on 01/21/2022 at 0:03 ? ? Approved by: Mitesh Giron M.D. on 01/21/2022 at 0:06 ? Labs Result Diagrams: 01/21/22 01:20 01/21/22 01:20 Labs: Laboratory Results - last 24 hr 01/21/22 01/21/22 01/21/22 01:20 01:20 03:43 WBC 8.0 RBC 3.49 L Hgb 10.6 L Hct 31.1 L MCV 89.2 MCH 30.3 MCHC 33.9 RDW 13.0 Plt Count 238 Neut % (Auto) 68.2 Lymph % (Auto) 16.4 L [place] % (Auto) 5.4 Eos % (Auto) 8.8 H Baso % (Auto) 1.2 Neut # (Auto) 5500 Lymph # (Auto) 1300 [place] # (Auto) 400 Eos # (Auto) 700 H Baso # (Auto) 100 Sodium 135 L Potassium 3.6 Chloride 103 Carbon Dioxide 25 BUN 10 Creatinine 0.50 L Estimated GFR > 60 BUN/Creatinine Ratio 20.0 Glucose 99 Calcium 8.9 Total Bilirubin 0.4 AST 22 ALT 17 Alkaline Phosphatase 48 Total Protein 6.5 Albumin 3.9 Globulin 2.6 Albumin/Globulin Ratio 1.5 HCG, Quant 6395.7 SARS-CoV-2 (PCR) Negative Assessment & Plan Assessment and plan (1) Incomplete : Status: Acute Assessment & Plan narrative: With episodes of heavy bleeding with clots, severe cramping. Discussed with patient option of proceeding with dilatation and curettage for removal of the tissue. She is hemodynamically stable and option could be observation here with pain medication and observation of vital signs. Told by phone tachycardic, but normal pulse recorded. Thus could be option for continued passage on her own minute. However discussed with the episodes of heavier bleeding with large clots, she could become very anemic and risk blood transfusion. She does find the cramping to severe overall. Suction dilatation and curettage procedure reviewed. Risk of the procedure reviewed including bleeding, infection, uterine perforation with risk of injury to adjacent organs including bladder and bowel, risk of intrauterine scarring, Asherman syndrome with risk of infertility discussed. After reviewing procedure and also risk of continuing with a spontaneous Ab of risk of infection, heavy bleeding and possible severe anemia. She desires to proceed with dilatation and curettage for treatment of the incomplete miscarriage. sample coordinator notified and OR team called in. Will proceed with suction dilatation curettage. Blood type is O-positive from 2019 lab. Type and screen drawn. COVID-19 COVID-19 status: Negative Result date/Date tested (Pos, Neg/Pending): 01/21/22 Time Spent With Patient Time with patient: 30 to 49 minutes with 50% spent counseling/coordinating care Critical Care time: I spent a total of [] minutes of critical care time on this patient's care today; this time is exclusive of procedural time.
[2022-01-21] MEDS: LACTATED RINGERS 1,000 ML 125 ML IV (04:24)
[2022-01-21] MEDS: DOXYCYCLINE 100 MG in SODIUM CHLORIDE 0.9% 100 ML IV (05:12)
--- NOTE | 2022-01-21 05:31 | SUR.OPER ---
Lithotomy on padded OR bed, head on pillow, arms secured on padded arm boards at <90 degrees abduction. Legs secured in padded yellow fins stirrups.
--- NOTE | 2022-01-21 05:55 | PM.OP.1 ---
Operative Date/Time/Diagnoses Date of procedure: 01/21/22 Time of procedure: 17:30 Pre-op diagnosis: Incomplete Ab, incomplete miscarriage at 9 weeks by ultrasound, 12 weeks by dates Post-op diagnosis: same Procedure & Clinicians Procedure: Suction dilatation and curettage Same procedure as scheduled: Yes Indications: 36-year-old female , EGA by LMP 12 weeks 6 days. Ultrasound 4 days ago per patient showed 9 week size fetus with absence of heart rate. She did develop cramping and bleeding over the past few days which became heavy today. Over the few hours before she presented to ED bleeding became very heavy, with standing and passing large clots, accompanied by severe cramping which was not tolerable. She had felt lightheaded once standing in the ED as well, but vital signs were stable and she was better with sitting again. On review of options of suction dilatation and curettage for the incomplete miscarriage, she desired proceeding with suction dilatation curettage. Surgeon: Mariluz Reyes Click Yes if Unassisted: Yes Anesthesia Type: General Operative Notes Findings: On bimanual examination 12-13 cm size globular uterus felt. Cervical os was already dilated with tissue visible in the cervical canal. Closure Type: not applicable Specimen(s): other (Products of conception) Estimated Blood Loss (mL): 100 Blood products transfused: none Procedure in detail: After informed consent was obtained, the patient was taken to the operating room. She was prepped and draped in the usual sterile fashion, and a speculum was inserted into the vagina. The cervix was easily visualized, grasped with a tenaculum. The cervix was visibly already dilated from her ongoing miscarriage. Dark tissue was visible just beyond the external cervical os. Ring forceps were used and the tissue was grasped and removed. Initially tissue appearing consistent with clot was removed. With an additional pass with ring forceps, a larger piece of tissue removed, possibly some products of conception, placental tissue versus clot. After tissue was removed from cervix to lower uterine segment, a #12 dilator was noted to easily pass through her internal cervical os, without need for dilatation. A # 10 curved suction curette was placed and passed to the uterine fundus without difficulty. Suction curettage was performed. With the initial pass tissue including a large piece of tissue was obtained. With the 3rd pass, no further tissue was obtained, only blood. Repeat pass also obtained only blood. At this time a metal curette was placed and gentle palpation of the uterine wu globally confirmed no further tissue. The suction curette was placed one last time and some residual blood and minimal clot was obtained. The suction curette was removed. She did have some moderate bleeding after removal of the tissue. Uterine massage was performed and the uterus firmed up and bleeding decreased to light. With double gloving, misoprostol 600 mcg was given per rectum. Outer gloves then removed. The speculum was reinserted in the vagina. On inspection, bleeding through the cervical os now remained light. The tenaculum was removed. Silver nitrate was placed to her left tenaculum site for some light bleeding and hemostasis was obtained. The procedure was ended. She tolerated the procedure well went to PACU in stable condition. Complications: none Post-operative Condition: stable Disposition: PACU Plan for aftercare: Vital signs have been stable in OR and in ED, no tachycardia or hypertension. She was not noted to have any heavy bleeding at the start of the procedure and bleeding was normal with the procedure. Doing well, hemodynamically stable, okay for discharge home from PACU. Follow-up appointment in 10-14 days.
[2022-01-21] MEDS: miSOPROStoL 200 MCG TABLET 800 MCG VAG (05:58)
[2022-01-21] MEDS: SILVER NITRATE STICK 2 EACH TOP (06:00)
[2022-01-21] MEDS: KETOROLAC 30 MG/ML VIAL IV (06:08)
== END 2022-01-21 06:48 | disposition home or self-care (01) ==
LOC: ED 01-21 05:07 → AC 01-21 06:17 → OR 01-21 08:41
PROVIDERS: Emergency Provider Emergency Medicine; PCP Naturopath; Visit Provider Obstetrics & Gynecology
PROC: (CPT 58120; principal; 2022-01-21 05:15)
DX: O03.1 Delayed or excessive hemorrhage following incomplete spontaneous abortion (principal); Z3A.12 12 weeks gestation of pregnancy; Z20.822 Contact with and (suspected) exposure to COVID-19
CPT/HCPCS: 59812; 36415; 76830; 76856; 80053; 84702; 85025; 86850; 86900; 86901; 87635; 96374; 99284; C9803; G0378; J1885; J2270; J2405; J2704; J3010; S0191

== ENCOUNTER 2022-05-19 18:44 | Emergency (ER) | payer BC, SELFPAY ==
[2022-05-19 18:50] VITALS: BP 131/76; PULSE 103; RESP 18; TEMP 36.6; O2SAT 99; BMI 25.8
--- NOTE | 2022-05-19 18:57 | DI.US.S_ITS ---
PROCEDURE: US OB <= 14 WEEKS FETUS INDICATIONS: PAIN, BLEEDING OUTSIDE/PRIOR DATING DATA: Last menstrual period (LMP): 03/31/2022. LMP-based estimated date of delivery (SHANKAR): 01/05/2023. First dating scan (date and location): 05/19/2022. Estimated date of delivery (SHANKAR) from first dating scan: 01/14/2023. TECHNIQUE: Real-time scanning was performed of the fetus and maternal pelvic organs, with image documentation. Endovaginal scanning was also performed to better visualize the fetus and maternal ovaries. COMPARISON: None from current . FINDINGS: Embryo: There is an intrauterine with a gestational sac and yolk sac identified. No discrete pole visualized. The mean sac diameter measures up to 1.0 cm corresponding to gestational age of 5 weeks 5 days and an estimated delivery date of 01/14/2023. Maternal organs: Ovaries appear within normal size limits. There is a hypoechoic cystic structure within the right ovary measuring up to 2.3 cm suggestive of a corpus luteal cyst. IMPRESSION: 1. Intrauterine demonstrated with a mean gestational sac diameter corresponding to gestational age of 5 weeks 5 days and estimated delivery date of 01/14/2023, discordant with patient's SHANKAR by LMP of 01/05/2023. Recommend continued clinical follow-up and repeat ultrasound if indicated. We strive to produce accurate, complete, and clear reports of imaging services. To assist us in improving patient care, this report was composed using standard report templates and voice recognition software. Therefore, it may contain abnormal punctuation, insertions and/or omissions. Occasional wrong-word or sound-alike substitutions may occur. Though we review the report and make efforts to correct it, we do recommend that the report be read carefully in proper context to recognize any text inaccuracies. Dictated by: Mitesh Giron M.D. on 05/19/2022 at 20:45 Approved by: Mitesh Giron M.D. on 05/19/2022 at 20:48
[2022-05-19 19:26] LABS: Add Manual Diff / Slide Review NO; Basophils Absolute Auto 0 /uL (0-100); Basophils Percent Auto 0.3 % (0-2); Eosinophils Absolute Auto 100 /uL (0-450); Eosinophils Percent Auto 1.4 % (2-4); Hematocrit 38.2 % (36-46); Hemoglobin 12.8 g/dL (12.0-16.0); Lymphocytes Absolute Auto 1500 /uL (1100-4500); Lymphocytes Percent Auto 25.9 % (25-40); Mean Corpuscular HGB Conc 33.5 % (30-36); Mean Corpuscular Hemoglobin 29.6 PG (26-34); Mean Corpuscular Volume 88.5 fL (80-100); Monocytes Absolute Auto 800 /uL (0-900); Monocytes Percent Auto 13.9 % (3-14); Neutrophils Absolute Auto 3500 /uL (1500-7000); Neutrophils Percent Auto 58.5 % (50-75); Platelet Count 313 X10^3/uL (150-400); Red Blood Cell Count 4.32 X10^6/uL (4.0-5.2); White Blood Cell Count 5.9 X10^3/uL (4.5-11.0)
[2022-05-19 19:44] LABS: Alanine Aminotransferase 37 IU/L (<35); Albumin 4.5 g/dL (3.5-5.0); Albumin Globulin Ratio 1.4 (1.0-2.8); Alkaline Phosphatase 52 U/L (38-126); Aspartate Aminotransferase 28 IU/L (14-36); BUN Creatinine Ratio 19.7 (6-22); Bilirubin Total 0.3 mg/dL (0.2-1.3); Blood Urea Nitrogen 14 mg/dL (7-17); Calcium 9.1 mg/dL (8.4-10.2); Carbon Dioxide 21 mmol/L (22-32); Chloride 105 mmol/L (98-107); Estimated Glomerular Filt Rate > 60 mL/min (>60); Globulin 3.3 g/dL (1.7-4.1); Glucose 95 mg/dL (70-100); HEMOLYSIS < 15 (0-50); Potassium 3.4 mmol/L (3.4-5.1); Sodium 138 mmol/L (137-145); Total Protein 7.8 g/dL (6.3-8.2)
[2022-05-19 19:49] LABS: Appearance Urine UA CLEAR; Bilirubin Urine UA NEGATIVE (NEGATIVE); Color Urine UA YELLOW; Glucose Urine UA NEGATIVE (Negative); Ketones Urine UA NEGATIVE (NEGATIVE); Leukocyte Esterase Urine UA NEGATIVE (NEGATIVE); Nitrite Urine UA NEGATIVE (Negative); Occult Blood Urine UA 3+ (Negative); Protein Urine UA NEGATIVE (Negative); Specific Gravity Urine UA <=1.005 (1.000-1.035); Urobilinogen Urine UA 0.2 E.U./dL (0.2)
[2022-05-19 19:57] LABS: Bacteria Urine Occasional (0-1); Culture Indicated Urine Cult Not Indicated; RBC Urine 1-5/HPF (0-5/HPF); Squamous Epithelial Cell Urine 1-5 /HPF (0-5/HPF); WBC Urine 1-5/HPF (0-5/HPF)
[2022-05-19 20:00] LABS: HCG Quantitative /Beta subunit 11714 mIU/mL
--- NOTE | 2022-05-19 20:23 | ED.FEMALEGU ---
HPI - Female Genitourinary General Chief complaint: OB/Uterine Contractions Stated complaint: abd and lower back pain, miscarriage 7wk preg Time Seen by Provider: 05/19/22 19:01 Mode of arrival: Ambulatory History of Present Illness HPI Narrative: 36-year-old female nonsmoker is a at about 7 weeks presents with cramping and bleeding as well as nausea. She is had multiple miscarriages. She complains of some intermittent dizziness and has been bleeding at a rate of about a pad an hour for the past few hours. She states it for the past 3 or 4 days she is had some lower back cramping and some lower pelvic cramping but developed a heavy bleeding today. She says, as noted she is been bleeding through about a pad per hour for most of the day and she feels a bit weak at this point. No fever or chills, no dysuria, frequency or urgency. Related Data Home Medications Medication Instructions Recorded Confirmed albuterol sulfate 90 mcg/actuation inhalation 01/21/22 aerosol inhaler lamotrigine 100 mg tablet mg 01/21/22 propranolol 10 mg tablet mg 01/21/22 Allergies Allergy/AdvReac Type Severity Reaction Status Date / Time No Known Drug Allergies Allergy Verified 01/21/22 02:21 Review of Systems Review of Systems Narrative: GENERAL: Denies chills, fatigue, malaise, fever, sweats. HEENT: Denies sinus pain, ear pain, sore throat, difficulty swallowing, dizziness. RESPIRATORY: Denies dyspnea, cough, wheezing, hemoptysis, sputum. CARDIOVASCULAR: Denies chest pain, palpitations, orthopnea, edema, GASTROINTESTINAL: Denies nausea, vomiting, abdominal pain, diarrhea, constipation, melena. : See HPI MUSCULOSKELETAL: denies weakness, joint pain, or bony pain SKIN: Denies rash, skin lesions, or other NEUROLOGIC: Denies weakness, headache, numbness, change in speech, confusion, seizures, incoordination. PSYCHIATRIC: No concerning psychosocial issues. 12 point review of systems is negative except for those stated above Patient History Medical History Anxiety Seasonal asthma Surgical History H/O section alcohol intake frequency: a few times a month Substance Use Type: marijuana Exam Narrative Exam Narrative: GENERAL: [36] year old patient appears stated age. Well-developed patient, in mild distress. HEAD: Atraumatic. Normocephalic. EYES: Pupils equal round and reactive. Extraocular motions intact. No scleral icterus. No injection or drainage. ENT: Nose without bleeding, purulent drainage. Throat without erythema, tonsillar hypertrophy or exudate. Airway patent. NECK: Trachea midline. Non tender CARDIOVASCULAR: Regular rate and rhythm without murmurs, gallops, or rubs. RESPIRATORY: Clear to auscultation. Breath sounds equal bilaterally. No wheezes, rales, or rhonchi. GASTROINTESTINAL: Abdomen soft, non-tender, nondistended. PELVIC: Very brief pelvic with note of minimal dark bleeding. Performed with patient's permission and female nurse account contact associate at the bedside EXTREMITIES: No edema or joint tenderness. BACK: Nontender without deformity or crepitance. No flank tenderness. NEURO: AOx3. SKIN: No rash or erythema of visible areas Initial Vital Signs Initial Vital Signs: Vital Signs Temperature 98 F 05/19/22 18:50 Pulse Rate 103 H 05/19/22 18:50 Respiratory Rate 18 05/19/22 18:50 Blood Pressure 131/76 05/19/22 18:50 Pulse Oximetry 99 05/19/22 18:50 Oxygen Delivery Method Room Air 05/19/22 18:50 Course Orders Ordered: ED Orders 05/19/22 18:57 US OB <= 14 weeks fetus Stat 05/19/22 19:12 Complete Blood Count AUTO DIFF Stat Comprehensive Metabolic Panel Stat HCG Quantitative /Beta subunit Stat Type and Screen Stat 05/19/22 19:16 Urinalysis and Microscopic Stat Vital Signs Vital signs: Vital Signs - 8 hr 05/19/22 18:50 Temperature 98 F Pulse Rate 103 H Respiratory Rate 18 Blood Pressure 131/76 Pulse Oximetry 99 Oxygen Delivery Method Room Air MDM - Female Genitourinary Lab Data 05/19/22 19:12 05/19/22 19:12 Labs: Lab Results 05/19/22 05/19/22 05/19/22 Range/Units 19:12 19:12 19:12 WBC 5.9 (4.5-11.0) X10^3/uL RBC 4.32 (4.0-5.2) X10^6/uL Hgb 12.8 (12.0-16.0) g/dL Hct 38.2 (36-46) % MCV 88.5 (80-100) fL MCH 29.6 (26-34) PG MCHC 33.5 (30-36) % RDW 14.0 (11.6-14.8) % Plt Count 313 (150-400) X10^3/uL Neut % (Auto) 58.5 (50-75) % Lymph % (Auto) 25.9 (25-40) % [place] % (Auto) 13.9 (3-14) % Eos % (Auto) 1.4 L (2-4) % Baso % (Auto) 0.3 (0-2) % Neut # (Auto) 3500 (7493-0754) /uL Lymph # (Auto) 1500 (2079-6339) /uL [place] # (Auto) 800 (0-900) /uL Eos # (Auto) 100 (0-450) /uL Baso # (Auto) 0 (0-100) /uL Sodium 138 (137-145) mmol/L Potassium 3.4 (3.4-5.1) mmol/L Chloride 105 (98-107) mmol/L Carbon Dioxide 21 L (22-32) mmol/L BUN 14 (7-17) mg/dL Creatinine 0.71 (0.52-1.04) mg/dL Estimated GFR > 60 (>60) mL/min BUN/Creatinine Ratio 19.7 (6-22) Glucose 95 (70-100) mg/dL Calcium 9.1 (8.4-10.2) mg/dL Total Bilirubin 0.3 (0.2-1.3) mg/dL AST 28 (14-36) IU/L ALT 37 H (<35) IU/L Alkaline Phosphatase 52 (38-126) U/L Total Protein 7.8 (6.3-8.2) g/dL Albumin 4.5 (3.5-5.0) g/dL Globulin 3.3 (1.7-4.1) g/dL Albumin/Globulin Ratio 1.4 (1.0-2.8) HCG, Quant 64185 mIU/mL Urine Color Urine Appearance Urine pH (4.5-8.0) Ur Specific [place] (1.000-1.035) Urine Protein (Negative) Urine Glucose (UA) (Negative) g/dL Urine Ketones (NEGATIVE) Urine Occult Blood (Negative) Urine Nitrate (Negative) Urine Bilirubin (NEGATIVE) Urine Urobilinogen (0.2) E.U./dL Ur Leukocyte Esterase (NEGATIVE) Urine RBC (0-5/HPF) Urine WBC (0-5/HPF) Ur Squamous Epith Cells (0-5/HPF) Urine Bacteria (None) Ur Culture Indicated? Blood Type A Positive Antibody Screen Negative 05/19/22 Range/Units 19:16 WBC (4.5-11.0) X10^3/uL RBC (4.0-5.2) X10^6/uL Hgb (12.0-16.0) g/dL Hct (36-46) % MCV (80-100) fL MCH (26-34) PG MCHC (30-36) % RDW (11.6-14.8) % Plt Count (150-400) X10^3/uL Neut % (Auto) (50-75) % Lymph % (Auto) (25-40) % [place] % (Auto) (3-14) % Eos % (Auto) (2-4) % Baso % (Auto) (0-2) % Neut # (Auto) (6677-4638) /uL Lymph # (Auto) (2470-9152) /uL [place] # (Auto) (0-900) /uL Eos # (Auto) (0-450) /uL Baso # (Auto) (0-100) /uL Sodium (137-145) mmol/L Potassium (3.4-5.1) mmol/L Chloride (98-107) mmol/L Carbon Dioxide (22-32) mmol/L BUN (7-17) mg/dL Creatinine (0.52-1.04) mg/dL Estimated GFR (>60) mL/min BUN/Creatinine Ratio (6-22) Glucose (70-100) mg/dL Calcium (8.4-10.2) mg/dL Total Bilirubin (0.2-1.3) mg/dL AST (14-36) IU/L ALT (<35) IU/L Alkaline Phosphatase (38-126) U/L Total Protein (6.3-8.2) g/dL Albumin (3.5-5.0) g/dL Globulin (1.7-4.1) g/dL Albumin/Globulin Ratio (1.0-2.8) HCG, Quant mIU/mL Urine Color Yellow Urine Appearance Clear Urine pH 6.0 (4.5-8.0) Ur Specific [place] <=1.005 (1.000-1.035) Urine Protein Negative (Negative) Urine Glucose (UA) Negative (Negative) g/dL Urine Ketones Negative (NEGATIVE) Urine Occult Blood 3+ H (Negative) Urine Nitrate Negative (Negative) Urine Bilirubin Negative (NEGATIVE) Urine Urobilinogen 0.2 (0.2) E.U./dL Ur Leukocyte Esterase Negative (NEGATIVE) Urine RBC 1-5/hpf (0-5/HPF) Urine WBC 1-5/hpf (0-5/HPF) Ur Squamous Epith Cells 1-5 /hpf (0-5/HPF) Urine Bacteria Occasional (0-1) (None) Ur Culture Indicated? Cult not indicated Blood Type Antibody Screen MDM Narrative Medical decision making narrative: CC: 36-year-old female at 7 weeks with lower abdominal cramping and vaginal bleeding Complicating co-morbidities: Age, , prior miscarriages Data collected from: Patient Medical records reviewed: Prior notes reviewed in our EMR Differential considered, but not limited to: Ectopic, miscarriage, implantation bleeding versus other Exam documented above, pertinent findings include: Heart rate regular, lungs clear, abdomen soft with very minimal if any tenderness, pelvic with minimal dark bleeding Lab Test results independently reviewed as above. Pertinent findings: No leukocytosis or left shift, no signs of anemia, electrolytes and kidney function within normal, beta quantitative hCG 11,714, Rh positive Imaging studies independently reviewed: ultrasound demonstrates IUP at 5 weeks and 5 days which is admittedly slightly discordant patient's last menstrual period Consultations: Discussed with Dr. Philip (OB) we have reviewed history and physical as well as labs and imaging results. He personally reached out to the patient's OB provider who encouraged his patient to call her office tomorrow to discuss follow-up options. No specific activity restriction Discussion: Patient with 1st trimester crampy vaginal bleeding, ultrasound demonstrates IUP, labs reassuring and no signs of anemia. Patient minimally symptomatic. Rh positive. Disposition: see below, along with detailed discharge instructions that have been reviewed with patient as well as indications for ED re-evaluation and additional outpatient follow up Discharge Plan Departure Patient Disposition: Home Clinical Impression: Vaginal bleeding affecting early Instructions: DI for -- Discomforts and Remedies Activity Restrictions/Additional Instructions: *You have been diagnosed with [vaginal bleeding in . As we discussed the ultrasound shows an intrauterine and your blood counts are reassuring.] *What to do: *Please continue to take your regular medications as directed. [ ] New medication prescriptions sent to your pharmacy: [ ] [ ] New medication written as a paper prescription [ ] No new medications given *the supervisor type disk quality control OB doctor called Fariba who wants you to call the office 1st thing in the morning to discuss follow-up options *Return to Emergency Department if you should have any new, worsening or concerning symptoms, such as [fever greater than 101 F, shaking chills, worsening pain, persistent vomiting or other bothersome symptoms] Prescriptions: No Action albuterol sulfate 90 mcg/actuation HFA aerosol inhaler INHALATION propranolol 10 mg tablet lamotrigine 100 mg tablet Referrals: Iraida Bran ND [Primary Care Provider] - Trav Philip MD [Physician] - Stand Alone Forms: Patient Portal/API
== END 2022-05-19 21:25 | disposition home or self-care (01) ==
PROVIDERS: Emergency Provider Emergency Medicine; PCP Naturopath
DX: O20.9 Hemorrhage in early pregnancy, unspecified (principal); Z3A.01 Less than 8 weeks gestation of pregnancy
CPT/HCPCS: 36415; 76801; 76817; 80053; 81001; 84702; 85025; 86850; 86900; 86901; 99283; 99284

== ENCOUNTER → 2022-06-06 15:45 | Outpatient (CLI) | payer BC, SELFPAY ==
--- NOTE | 2022-06-06 15:47 | DI.US.S_ITS ---
PROCEDURE: US OB <= 14 WEEKS FETUS INDICATIONS: BLEEDING. OUTSIDE/PRIOR DATING DATA: Last menstrual period (LMP): 03/31/2022. LMP-based estimated date of delivery (SHANKAR): 01/05/2023. First dating scan (date and location): 05/19/2022. Estimated date of delivery (SHANKAR) from first dating scan: 01/14/2023. The calculations are made using the ultrasound SHANKAR of 01/30/2023. TECHNIQUE: Real-time scanning was performed of the fetus and maternal pelvic organs, with image documentation. Endovaginal scanning was also performed to better visualize the fetus and maternal ovaries. COMPARISON: [facility], US, OB <= 14 WEEKS FETUS, 05/19/2022, 19:22. FINDINGS: Embryo: Gestational sac measures 1.8 cm corresponding with 6 weeks 0 days. [place]-rump length is 0.3 cm corresponding with 6 weeks 5 days. Heart rate: No heart tones IMPRESSION: Ultrasound age of 6 weeks 0 days by crown-rump length with no heart tones identified. Recommend follow-up ultrasound in 1 week. We strive to produce accurate, complete, and clear reports of imaging services. To assist us in improving patient care, this report was composed using standard report templates and voice recognition software. Therefore, it may contain abnormal punctuation, insertions and/or omissions. Occasional wrong-word or sound-alike substitutions may occur. Though we review the report and make efforts to correct it, we do recommend that the report be read carefully in proper context to recognize any text inaccuracies. Dictated by: Nickolas Sullivan M.D. on 06/06/2022 at 17:16 Approved by: Nickolas Sullivan M.D. on 06/06/2022 at 17:24
== END ==
PROVIDERS: PCP Nurse Practitioner Family; Referring Provider Advanced Practice Midwife; Visit Provider Advanced Practice Midwife
DX: O02.81 Inappropriate change in quantitative human chorionic gonadotropin (hCG) in early pregnancy (principal); O26.851 Spotting complicating pregnancy, first trimester; Z3A.01 Less than 8 weeks gestation of pregnancy
CPT/HCPCS: 76801; 76817